=== PATIENT | female | born 1985 | race Caucasian/White ===

== ENCOUNTER 2018-10-10 15:01 | Emergency (ER) | payer MEDICAID, OTHER ==
[~2018-10-10] VITALS: Ht 157.5 cm; Wt 75.0 kg
[2018-10-10 15:07] VITALS: Ht 157.5 cm; Wt 75.0 kg
[2018-10-10 15:45] VITALS: BP 113/56; PULSE 82; RESP 20
== END 2018-10-10 15:48 | disposition home or self-care (01) ==
LOC: E/R 15:01
DX: O26.892 Other specified pregnancy related conditions, second trimester (principal); R40.2142 Coma scale, eyes open, spontaneous, at arrival to emergency department; R40.2362 Coma scale, best motor response, obeys commands, at arrival to emergency department; R00.2 Palpitations; Z3A.28 28 weeks gestation of pregnancy
CPT/HCPCS: 82962; 93005; Z7502